=== PATIENT | male | born 1985 | race Caucasian/White ===

== ENCOUNTER 2017-12-05 22:05 | Emergency (ER) | payer OTHER ==
[~2017-12-05] VITALS: Ht 172.7 cm; Wt 76.8 kg
[2017-12-05 22:12] VITALS: BP 108/72; TEMP 98.2
[2017-12-05] MEDS ORDERED: ZOVIRAX800 MG PO (23:19)
[2017-12-05] MEDS ORDERED: NORCO 325 MG-7.1 TAB PO (23:20)
[2017-12-05 23:37] VITALS: PULSE 71
== END 2017-12-05 23:40 | disposition home or self-care (01) ==
LOC: COL.ER 22:05
DX: B02.9 Zoster without complications (principal); Z90.89 Acquired absence of other organs